=== PATIENT | female | born 2000 | race Caucasian/White ===

== ENCOUNTER 2019-01-15 10:35 | Emergency (ER) | payer OTHER ==
[2019-01-15 10:57] VITALS: BP 115/74
--- NOTE | 2019-01-15 11:21 | UC ---
Complaint Female HPI - HPI Summary HPI Summary: Pt presents with c/o vaginal itching and discharge. Pt was treated for UTI 2 weeks ago then was diagnosed with chlamydia on 01/07/19. Pt states that she has missed a "couple" of her BCP and that she has been unusually "stressed" the last few weeks. Pt is concerned that she may have had PID, or that she still has chlamydia or a different STI. She denies recent sexual activity. does report one occurrence of "brownish discharge" and thick white vaginal discharge. - History Of Current Complaint Chief Complaint: UCGU Stated Complaint: URINARY COMPLAINT Time Seen by Provider: 01/15/19 10:51 Hx Obtained From: Patient Hx Last Menstrual Period: 12/29/18 ?: No Onset/Duration: Sudden Onset, Lasting Days, Still Present Timing: Lasting Days Severity Initially: Mild Severity Currently: Mild Pain Intensity: 0 Character: Dull, Burning Aggravating Factor(s): Nothing Alleviating Factor(s): Nothing Associated Signs And Symptoms: Positive: Vaginal Discharge - Risk Factors Ectopic Risk Factor: Negative Ovarian Torsion Risk Factor: Reproductive Age - Allergies/Home Medications Allergies/Adverse Reactions: Allergies Allergy/AdvReac Type Severity Reaction Status Date / Time No Known Allergies Allergy Verified 01/15/19 10:54 Home Medications: Home Medications Control Pill 1 dose PO DAILY 01/15/19 [History Confirmed 01/15/19] PMH/Surg Hx/FS Hx/Imm Hx Previously Healthy: Yes - Surgical History Surgical History: Yes Surgery Procedure, Year, and Place: brain tumor - Family History Known Family History: Positive: Cardiac Disease - Social History Occupation: Student Lives: Dormitory/Roommates Alcohol Use: Occasionally Substance Use Type: None Smoking Status (MU): Never Smoked Tobacco Have You Smoked in the Last Year: No - Immunization History Vaccination Up to Date: Yes Review of Systems All Other Systems Reviewed And Are Negative: Yes Constitutional: Positive: Negative Skin: Positive: Negative Eyes: Positive: Negative ENT: Positive: Negative Respiratory: Positive: Negative Cardiovascular: Positive: Negative Gastrointestinal: Positive: Negative Genitourinary: Positive: Vaginal/Penile Burning, Vaginal/Penile Itching, Vaginal /Penile Discharge Motor: Positive: Negative Neurovascular: Positive: Negative Musculoskeletal: Positive: Negative Neurological: Positive: Negative Psychological: Positive: Negative Is Patient Immunocompromised?: No Physical Exam Triage Information Reviewed: Yes Appearance: Well-Appearing, Other: - pt is tearful during exam as she is concerned about risk for PID and infertility Vital Signs: Initial Vital Signs Temp 98.6 F 01/15/19 10:52 Pulse 90 01/15/19 10:52 Resp 14 01/15/19 10:52 BP 115/74 01/15/19 10:52 Pulse Ox 99 01/15/19 10:52 Vital Signs Reviewed: Yes Eye Exam: Normal ENT: Positive: Hearing grossly normal Dental Exam: Normal Neck exam: Normal Respiratory: Positive: No respiratory distress Musculoskeletal Exam: Normal Neurological Exam: Normal Psychological Exam: Normal Skin Exam: Normal Complaint Female Dx - Course Course Of Treatment: Pt requested to be tested again "for everything. Pt was seen by [facility] provider on 01/05/19. Pt elected to do self swab- Affirm and GC chlamydia off urine. - Differential Dx/Diagnosis Differential Diagnosis/HQI/PQRI: Sexually Transmitted Disease, Urinary Tract Infection Provider Diagnosis: Itching in the vaginal area Discharge ED - Sign-Out/Discharge Documenting (check all that apply): Patient Departure All imaging exams completed and their final reports reviewed: No Studies - Discharge Plan Condition: Stable Disposition: HOME Prescriptions: Miconazole VAG.SUPP* [Monistat7*] 100 mg VAGINAL BEDTIME #7 vag.supp Patient Education Materials: Vaginitis (ED) Referrals: [facility] [place] [facility]FERR[facility] [Outside] No Primary Care Phys,NOPCP [Primary Care Provider] - Additional Instructions: Please follow up with your PCP and Vocational Rehabilitation Specialist provider as needed. You may call in 4-5 days to find out the results of the tests we have conducted today. - Billing Disposition and Condition Condition: STABLE Disposition: Home
[2019-01-16 12:48] LABS: Chlamydia trachomatis NAA Negative (Negative); Neisseria gonorrhoeae (GC) NAA Negative (Negative)
== END 2019-01-15 11:32 | disposition home or self-care (01) ==
LOC: UCCORT 10:35
DX: L29.3 Anogenital pruritus, unspecified (principal)
CPT/HCPCS: 81003; 84702; 87086; 87480; 87491; 87510; 87591; 87660; 99202; G0463